=== PATIENT | female | born 1950 | race Caucasian/White ===

== ENCOUNTER 2016-12-16 08:44 | Day surgery (SDC) | payer MEDICARE ==
[~2016-12-16] VITALS: Ht 160 cm; Wt 50.0 kg
[~2016-12-16 08:44] MED LIST: ATEN100T PO; BACL20TA PO; CHOL-9 PO; FUR20 PO; GABA-502 PO; GABA600T2 PO; GLAT20KI2 SUBQ; LINA145C PO; MORP-32 PO; MORP15TA PO; OMEP40CA36 PO; POLY17PO6 PO; POTA-62 PO; PREG75CA PO; SIMV40TA5 PO; TIZA2TAB3 PO
[2016-12-16] MEDS ORDERED: Propofol 10,000 mCg/mL 20 mL Inj ONE (08:45)
[2016-12-16 09:03] VITALS: BP 113/73; PULSE 53; RESP 16; O2SAT 99
--- NOTE | 2016-12-16 09:29 | PCM.HPANE ---
Patient Data Surgeon Admitting Provider: Attending Provider:Jerardo Rodriguez MD Primary Care Physician:Other,Physician Other Provider:Leanna Weaver Nv Reason for Visit Lesion Of Esophagus Ht/WT & BMI Height (Feet): 5 Height (Inches): 3 Weight (Kilograms): 50 Body Mass Index 19.00 Allergies Coded Allergies: Penicillins (Verified Allergy, Unknown, UNKNOWN, 12/16/16) PER H&P Past Anesthesia History Anesthesia History: Denies:: Abnormal Airway, Anesthesia Reactions, Difficult Intubation, Fam Anesthesia Reaction, Fam Malignant Hypertherm, Malignant Hyperthermia Diabetes History Hx Diabetes?: No MRSA MRSA: No Medications Hypertension Medication: Yes Home Meds Incl Beta Raffy: Yes Date Beta Raffy Taken: Dec 16, 2016 Time Beta Raffy Taken: 0600 Reported Medications Cholecalciferol (Vitamin D3) (Vitamin D3)10,000 Unit Ttybtb04,000 Unit PO DAILY 03/19/15 Potassium Chloride ER 20 Meq Tablet.er20 Meq PO BID Ref 0 TAKE WITH FOOD 03/19/15 Gabapentin 600 Mg Kxhyvf630 Mg PO QID Ref 0 02/20/15 Morphine Sulfate 15 Mg Woykpm03 Mg PO prn breakthrough pain 02/18/15 Morphine Sulfate ER 15 Mg Pdlink83 Mg PO BID 02/18/15 Omeprazole 40 Mg Capsule.dr40 Mg PO BID Ref 0 02/17/15 Tizanidine 2 Mg Tablet4 Mg PO Q8 01/29/15 Simvastatin 40 Mg Anlbid25 Mg PO HS 30 Days Ref 0 01/29/15 Polyethylene Glycol 3350 (Miralax)17 Gm Powd.pack17 Gm PO DAILY 01/29/15 Pregabalin (Lyrica)75 Mg Cqbcfsi59 Mg PO QID 30 Days Ref 0 01/29/15 Linaclotide (Linzess)145 Mcg Qvoylud001 Mcg PO DAILY 01/29/15 Gabapentin 300 Mg Wpiscqa311 Mg PO QID 30 Days Ref 0 01/29/15 Furosemide 20 Mg Tab20 Mg PO DAILY 30 Days Ref 0 01/29/15 Glatiramer Acetate (Copaxone)20 Mg Jthambj03 Mg SUBQ DAILY 01/29/15 Baclofen 20 Mg Ccijuk70 Mg PO QID 30 Days Ref 0 01/29/15 Atenolol 100 Mg Jqzcrv036 Mg PO DAILY Ref 0 01/29/15 History History of ENT Problems?: No HEENT History: Denies:: Abnormal Airway Difficult Intubation Hearing Problem (HX EAR INFECTIONS) Sinus Problem Denture Type: None Teeth Condition: Within Normal Limits Hx of Heart Problems?: Yes Cardiovascular History: Positive for:: Edema (LE) Hypertension Denies:: AICD Chest Pain Heart Murmur Pacemaker Rheumatic Fever Valvular Heart Disease Hx of Respiratory Problem?: No Respiratory History: Denies:: Asthma COPD Dyspnea Emphysema Hemoptysis Tuberculosis Use of C-PAP Machine Hx Neurologic Problems?: No Neurological History: Positive for:: Multiple Sclerosis (MULTIFOCAL DYSTONIA TX W/ BOTOX Q 12 WEEKS) Denies:: Alzheimer's Disease CVA Dementia Dizziness Headaches Seizures Hx of GI Problems?: No Hx of Problems?: No Genitourinary History: Denies:: HX of Hemodialysis Kidney Stones Urinary Tract Infection Female Hx: Denies:: Currently (MARY) Endometriosis Pelvic Inflammatory Problems with Breasts? Skin History: Denies:: History Skin Disorders? Pressure Ulcers Hx Musculoskeletal Problems?: Yes Musculoskeletal History: Denies:: Back Injury Joint Replacement Musculoskeletal Trauma Hx of Psycho/Social Problems?: No Psycho Social History: Denies:: Anxiety Bipolar Disorder Hx Depression Hx Surgeries?: Yes (L HEMICOLECTOMY, TUBAL, BREAST BIOPSY, TONSILS) Hx Any Other Health Problems?: Yes Other History: Positive for:: Hospitalization Denies:: Cancer Endocrine Disease Thyroid Disease History Blood Transfusions: Denies:: Blood Transfusions Hx Diabetes: No Hx Alcohol Use: NoHx Substance Use: No Smoking Status: Never Smoker Have You Smoked inLast 12 mo: No Stop/Bang Treated for Sleep Apnea?: No Do You Have a CPAP Machine?: No S-Snoring: Do You Snore Loudly: No T-Tired: feel tired, fatigued: No O-Obsered: Observed not breath: No P-Blood Pressure: treated: Yes B- Body Mass Index > 35 kg/m2: No A- Age over 50: Yes N- Neck Large Circumference: No G- Gender Male: No MEGHAN Total Score: 2 MEGHAN Risk Assessment: Low Risk, <3 Yes Risk Assessment Category Category 1A: Patient has history of documented sleep apnea, and HAS NOT received any narcotic, sedative or anesthesia administration during this stay. Category 1B: Patient has history of documented sleep apnea, and HAS received any narcotic , sedative or anesthesia administration during this stay Category 2: Patient has SUSPECTED Obstructive Sleep Apnea, and HAS received any narcotic , sedative or anesthesia administration during this stay. Category 3: Patient has SUSPECTED Obstructive Sleep Apnea and HAS NOT received narcotic, sedative or anesthesia administration during this stay. Category 4: Outpatient in Procedural Areas with known sleep apnea or who screen positive for High Risk via the STOP/BANG questionnaire. Exam Exam Vital Signs Vital Signs Date Time Temp Pulse Resp B/P Pulse Ox O2 Delivery O2 Flow Rate FiO2 12/16/16 09:03 36.6 53 16 113/73 99 Room Air General Appearance: Alert, Oriented X3, Cooperative, No Acute Distress HEENT/AIRWAY: MP 2 Lungs: Normal Air Movement Heart: Exam Unremarkable Plan Impression Patient chart reviewed, patient interviewed and anesthestic plan with risks, benefits, and alternatives discussed, and informed consent obtained. NPO per Anesth. Guidelines: Yes ASA Physical Status: ASA3 Severe Disease (multiple sclerosis) Anesthetic Plan: MAC Bene/Risks/Altern/Consents: Yes HP Complete Prior to Induction: Yes Keanu Velez MD Dec 16, 2016 09:29
[2016-12-16] MEDS: Lactated Ringer's 1,000 ML IV ONE ×2 (09:40→09:43)
[2016-12-16 09:55] VITALS: BP 104/66; PULSE 54; RESP 16; O2SAT 100
--- NOTE | 2016-12-16 09:55 | PCM.ENDEGD ---
EGD Date of Service: Dec 16, 2016 Physician Jerardo Rodriguez MD Pre Procedure Diagnosis: Squamous cell atypia Post Procedure Dx & Findings: Esophageal inflammation all the way to the mid esophagus Procedure Esophagogastroduodenoscopy PROCEDURE IN DETAIL: After proper sedation, Olympus video endoscope was inserted into patient's mouth and esophagus was successfully intubated. Scope introduced esophagus. Esophagus showed normal shiny whitish mucosa consistent with squamous cell component up to approximately one third of the esophagus. Starting in the distal esophagus about 25 cm, we start seeing patchy mucosal redness very from few millimeters to centimeter and a half. Was no ulceration noted erosion or no nodule or no mass. This continued to the Z line which was approximately at 40 cm. The GE junction had a sudden sharp turn. We were able to see the Z line which seemed to be intact overall. After we got through this, scope seemed to be anchored. The scope was not advanced with gentle forward pressure. It felt as though the scope was anchored. We were able to see the body and the fundus of the stomach. Scope was withdrawn and multiple biopsies obtained at these mucosal defects. Impression Esophageal patchy redness status post biopsy Sharp turn at the GE junction and after that the scope appeared to be anchored. Recommendation Barium esophagram later this week. Follow up in GI clinic next week. Presedation Assessment Risks and Benefits Informed consent was obtained from the patient after all risks and benefits including but not limited to drug reaction, infection, pain, bleeding, perforation, as well as alternatives were discussed. Patient monitoring Continuous pulse oximetry, cardiac monitoring, blood pressure monitoring, IV access, and oxygen at 2L per nasal cannula. Complications There were no periprocedural complications identified. Post Procedure Plan Post Procedure Recommendations 1. Restrict activities today. 2. Resume normal activities in the morning. 3. Resume medications. 4. GERD behavioral modification: - Avoid fatty, acidic, spicy, large meals - Do not lie down after meals - Do not eat or drink anything for at least 2 1/2 hours before going to bed at night - Discontinue tobacco and alcohol - Decrease or avoid caffeine - Avoid chocolate and mints - Decrease weight - Avoid aspirin and non steroidal anti-inflammatory agents (NSAID) such as Aleve, Advil, Mobic, Naproxen, Ibuprofen, etc 5. Add proton pump inhibitor. Take 30 minutes before 1st meal of the day. 6. Patient informed of normal post procedure side effects as bloating, drowsiness, blood streaking in the stool 7. If gastric biopsy reveal H.pylori, continue with appropriate treatment 8. If small bowel biopsy reveals celiac, continue with appropriate treatment 9. Please don't hesitate to call me with any questions Jerardo Rodriguez MD Dec 16, 2016 09:55
[2016-12-16 10:05] VITALS: BP 102/62; PULSE 58; RESP 16; O2SAT 99
[2016-12-16 10:15] VITALS: BP 108/69; PULSE 56; RESP 16; O2SAT 97
[2016-12-16 10:25] VITALS: BP 114/68; PULSE 59; RESP 16; O2SAT 97
[2016-12-16 10:47] VITALS: BP 199/72; PULSE 57; RESP 16; O2SAT 96
--- NOTE | 2016-12-16 12:20 | PCM.ANEP1 ---
Post Anesthesia PACU Phase 1 Assessment Vital Signs Vital Signs Date Time Temp Pulse Resp B/P Pulse Ox O2 Delivery O2 Flow Rate FiO2 12/16/16 10:47 57 16 199/72 96 Room Air 12/16/16 10:25 59 16 114/68 97 Room Air 12/16/16 10:15 56 16 108/69 97 Room Air 12/16/16 10:05 58 16 102/62 99 Nasal Cannula 2 12/16/16 09:55 54 16 104/66 100 Room Air 12/16/16 09:03 36.6 53 16 113/73 99 Room Air Anesthetic Administered: MAC Level of Alertness: Awake, talking Pain: No Nausea or Vomiting: No CV Function & Hydration Stable: Yes Airway Device: Lungs: Normal Air Movement PACU Phase 2 Assessment Patient Instructions Provided: N/A Reese Vaughan MD Dec 16, 2016 12:20
--- NOTE | 2016-12-21 13:37 | PATH ---
SURGICAL PATHOLOGY Attending Physician:Jerardo Rodriguez M.D. CASE STATUS: Signed Out PATIENT NAME: JEFFREY ABDALLA PID: [id number] : 1950 DATE COLLECTED:12/16/2016 16:14 SPECIMEN: Esophagus, Biopsy CLINICAL HISTORY: 1. DISTAL ESOPHAGUS ULCER BIOPSY FINAL DIAGNOSIS: 1.DISTAL ESOPHAGUS BIOPSY: TISSUE WITH CHRONIC INFLAMMATION AND ULCERATION WITH APPARENT GRANULATION TISSUE WITH REACTIVE ATYPICAL-APPEARING ENDOTHELIAL CELLS. Negative for viral inclusions. Negative for evidence of fungi. Negative for malignancy. Case reviewed by Dr Ese Koehler who agrees with the diagnois. ICD10 K22.10 GROSS DESCRIPTION: The specimen is received in one formalin filled container labeled with the patient's name, sublabeled "distal esophagus ulcer" and consists of 2 portions of tissue which aggregate to 0.2 x 0.2 x 0.1 CM. The specimen is entirely submitted in one cassette. 12/16/2016 DAC MICRO DESCRIPTION: See diagnosis. ICD-9 CODES: CPT CODES: 1: 17209 Electronically Signed Out Oumar Hastings MD [facility] [address], [place] [address] Technical component performed at [facility], [address] [place] [address] Ave[address], [place], [address]
== END 2016-12-16 23:59 | disposition home or self-care (01) ==
LOC: END 08:44
PROVIDERS: ATTEND Internal Medicine
DX: K22.10 Ulcer of esophagus without bleeding (principal); K22.9 Disease of esophagus, unspecified; I10 Essential (primary) hypertension; K59.00 Constipation, unspecified; G35 Multiple sclerosis; Z85.038 Personal history of other malignant neoplasm of large intestine
CPT/HCPCS: 43239; J7120